=== PATIENT | male | born 1970 | race Hispanic/Latino ===

== ENCOUNTER 2024-04-16 13:16 | Emergency (ER) | payer BC, OTHER ==
--- NOTE | 2024-04-16 14:01 | RAD REPORT ---
EXAM DESCRIPTION: CT - Head Brain Wo Cont - 04/16/2024 1:53 pm CLINICAL HISTORY: DIZZINESS Headache, drowsiness, dizziness COMPARISON: <Comparisons> TECHNIQUE: All CT scans are performed using dose optimization technique as appropriate and may inclu de automated exposure control or mA/KV adjustment according to patient size. FINDINGS: No intracranial hemorrhage, hydrocephalus or extra-axial fluid collection.No areas of brai n edema or evidence of midline shift. Mild vertebral atherosclerosis. The paranasal sinuses and mastoids are clear. The calvarium is intact. IMPRESSION: No acute intracranial abnormality.
--- NOTE | 2024-04-16 14:07 | RAD REPORT ---
EXAM DESCRIPTION: RAD - Chest Single View - 04/16/2024 2:02 pm CLINICAL HISTORY: dizziness Chest pain. COMPARISON: Chest Pa And Lat (2 Views) dated 11/11/2016; CHEST PA AND LAT 2 VIEW dated 08/06/2009; Ab domen Exam Limited dated 12/12/2017; Chest For Pe Angio dated 11/11/2016 FINDINGS: Portable technique limits examination quality. The lungs are grossly clear. The heart is normal in size. No displaced fractures. IMPRESSION: No acute intrathoracic process suspected.
[2024-04-16 15:14] LABS: Absolute Eosinophils 0.2 K/uL (0-0.5); Absolute Lymphocytes (CBC) 1.4 K/uL (0.7-4.9); Absolute Monocytes 0.5 K/uL (0.1-1.3); Absolute Neutrophil 5.6 K/uL (1.8-8.0); Basophils % 0.6 % (0-1.3); Eosinophils % 2.7 % (0-4.4); Hematocrit 44.9 % (39.6-49.0); Hemoglobin 15.1 g/dL (13.6-17.9); Lymphocytes % 17.9 % (15.3-44.8); MCH 30.4 pg (27.0-35.0); MCHC 33.7 g/dL (32.0-36.0); MCV 90.3 fL (80-100); Monocytes % 6.8 % (3.3-12.3); Platelets 270 thou/uL (152-406); RBC Red Blood Cell Count 4.98 M/uL (4.33-5.43); Red Cell Distribution Width 14.3 % (12.1-15.2)
[2024-04-16 15:16] LABS: Specific Gravity > 1.030 (1.005-1.030); Sqamous Epithelial None Seen /HPF (None Seen); Urine Bacteria None Seen /HPF (<20); Urine Bilirubin NEGATIVE (Negative); Urine Blood Negative (Negative); Urine Clarity Clear (Clear); Urine Color Light-Yellow (Yellow); Urine Culture Reflex Order NOT NEEDED; Urine Glucose 4+ (Over) (Negative); Urine Ketones NEGATIVE (Negative); Urine Micro Reflex YN NO BILL MICROSCOPIC; Urine Mucus Slight /HPF (None Seen); Urine Nitrite NEGATIVE (Negative); Urine Protein NEGATIVE (Negative); Urine RBC <5 /HPF (None Seen); Urine Urobilinogen Normal (Normal); Urine WBC <5 /HPF (<5)
[2024-04-16 15:33] LABS: Albumin 3.8 g/dL (3.4-5.0); Albumin/Globulin Ratio 1.2 (1.1-1.8); Anion Gap 9.1 mEq/L (5.0-15.0); Bilirubin Direct 0.2 mg/dL (0-0.2); Bilirubin Indirect, Calculated 0.2 mg/dL (0.2-0.8); Bilirubin Total 0.4 mg/dL (0.2-1.0); Globulin 3.1 g/dL (2.3-3.5); Magnesium 2.3 mg/dL (1.6-2.4); Potassium 4.1 mEq/L (3.5-5.1); Protein, Total 6.9 g/dL (6.4-8.2); Troponin High Sensitivity 3.3 pg/mL (<58.9)
[2024-04-16] MEDS ORDERED: NA CHLORIDE 0.9% 1,000 ML ONE (15:43)
[2024-04-16] MEDS ORDERED: MECLIZINE HCL 12.5 MG TAB ONE (16:17)
--- NOTE | 2024-04-16 17:25 | ER ---
Nurse's Notes [facility] Name: Jean Carlos Guidry Jr Age: 53 yrs Sex: Male : 1970 Arrival Date: 04/16/2024 Time: 13:16 Bed 23 Private MD: Diagnosis: Dizziness and giddiness;Volume depletion, unspecified;Diabetes mellitus due to underlying condition with hyperglycemia Presentation: 04/16 13:35 Chief complaint: Patient states: TODAY FELT DIZZY AND LIGHTHEADED. FELT LIKE WAS GOING db TO PASS OUT. TOOK BP IT WAS 72/40. GLUCOSE WAS IN 300S AT HOME AND TOOK MEDICATION. Coronavirus screen: Client denies travel out of the [place] in the last 14 days. At this time, the client does not indicate any symptoms associated with coronavirus-19. Ebola Screen: Patient negative for fever greater than or equal to 101.5 degrees Fahrenheit, and additional compatible Ebola Virus Disease symptoms Patient denies exposure to infectious person. Patient denies travel to an Ebola-affected area in the 21 days before illness onset. No symptoms or risks identified at this time. Initial Sepsis Screen: Does the patient meet any 2 criteria? No. Patient's initial sepsis screen is negative. Does the patient have a suspected source of infection? No. Patient's initial sepsis screen is negative. Risk Assessment: Do you want to hurt yourself or someone else? Patient reports no desire to harm self or others. Onset of symptoms was April 16, 2024 at 11:30. 13:35 Method Of Arrival: Ambulatory db 13:35 Acuity: HAROLDO 2 db Triage Assessment: 13:37 General: Appears in no apparent distress. comfortable, Behavior is calm, cooperative. db Pain: Denies pain. Neuro: Level of Consciousness is awake, alert, obeys commands, Oriented to person, place, time, situation, Reports dizziness. Respiratory: Airway is patent Respiratory effort is even, unlabored, Respiratory pattern is regular, symmetrical. Historical: - Allergies: 13:37 No Known Allergies; db - PMHx: 13:37 Diabetes - IDDM; Hyperlipidemia; Hypertension; db - Immunization history:: Adult Immunizations unknown. - Infectious Disease History:: Denies. - Social history:: Smoking status: Patient denies any tobacco usage or history of. Screenin:18 [facility] ED Fall Risk Assessment (Adult) History of falling in the last 3 months, iw including since admission No falls in past 3 months (0 pts) Confusion or Disorientation No (0 pts) Intoxicated or Sedated No (0 pts) Impaired Gait No (0 pts) Mobility Assist Device Used No (0 pt) Altered Elimination No (0 pt) Score/Fall Risk Level 0 - 2 = Low Risk Oriented to surroundings. Abuse screen: Denies threats or abuse. Denies injuries from another. Nutritional screening: No deficits noted. Tuberculosis screening: No symptoms or risk factors identified. Assessment: 17:18 Reassessment: Patient appears in no apparent distress at this time. Patient and/or iw family updated on plan of care and expected duration. Pain level reassessed. Patient is alert, oriented x 3, equal unlabored respirations, skin warm/dry/pink. Patient states feeling better. Patient states symptoms have improved. Vital Signs: 13:35 BP 108 / 75; Pulse 80; Resp 18; Temp 97.4; Pulse Ox 98% on R/A; Weight 92.99 kg; Height db 5 ft. 7 in. ; 17:26 BP 121 / 70; Pulse 72; Resp 16; Pulse Ox 99% on R/A; zm 13:35 Body Mass Index 32.11 (92.99 kg, 170.18 cm) db ED Course: 13:19 Patient arrived in ED. im 13:32 Estuardo Lopez PA is PHCP. cp 13:32 Estuardo Florez MD is Attending Physician. cp 13:37 Triage completed. db 13:37 Arm band placed on right wrist. db 13:54 CT Head Brain wo Cont In Process Unspecified. EDMS 14:02 X-ray completed. Patient tolerated procedure well. mh1 14:03 XRAY Chest (1 view) In Process Unspecified. EDMS 14:56 Amy England, RN is Primary Nurse. iw 15:07 Initial lab(s) drawn, by me, sent to lab. Inserted saline lock: 20 gauge in left iw antecubital area, using aseptic technique. Blood collected. 17:18 Patient has correct armband on for positive identification. Provided Education on: . iw 17:40 No provider procedures requiring assistance completed. IV discontinued, intact, iw bleeding controlled, No redness/swelling at site. Pressure dressing applied. Administered Medications: 15:49 Drug: NS 0.9% IV 1000 ml IV at 999 ml/hr Per protocol; 1000 mL bolus Route: IV; Rate: iw 999 ml/hr; Site: left antecubital; 17:00 Follow up: IV Status: Completed infusion iw 17:07 Drug: Meclizine PO 25 mg PO once Route: PO; iw 17:15 Follow up: Response: No adverse reaction iw Medication: 17:18 VIS not applicable for this client. iw Outcome: 17:24 Discharge ordered by MD. cp 17:40 Discharged to home ambulatory, with family, iw 17:40 Condition: good 17:40 Discharge instructions given to patient, Instructed on discharge instructions, follow up and referral plans. medication usage, Demonstrated understanding of instructions, follow-up care, medications, Prescriptions given X 1, 17:40 Patient left the ED. iw Signatures: Dispatcher [employer] EDMS Maeve Koch [facility] Amy England, RN RN iw Estuardo Lopez PA PA cp Martinez, Zaina zm Benton, Danielle RN RN db Court Navarro Corrections: (The following items were deleted from the chart) 13:41 13:35 BP 108 / 75; Pulse 80bpm; Resp 18bpm; Pulse Ox 98% RA; db db
--- NOTE | 2024-04-16 17:25 | EDPHYS ---
Physician Documentation [facility] Name: Jean Carlos Guidry Jr Age: 53 yrs Sex: Male : 1970 Arrival Date: 04/16/2024 Time: 13:16 Bed 23 Private MD: ED Physician Estuardo Florez HPI: 04/16 13:50 This 53 yrs old Male presents to ER via Ambulatory with complaints of Low cp blood pressure, Dizziness. 13:50 The patient presents with dizziness, lightheadedness. cp 13:50 Onset: The symptoms/episode began/occurred today, 2 hour(s) ago. Context: just prior to cp the episode the patient experienced no apparent symptoms, was sitting in chair at home. Associated signs and symptoms: Pertinent positives: dizziness and low blood pressure, Pertinent negatives: abdominal pain, chest pain, confusion, focal weakness, headache, near-syncope, syncope. Severity of symptoms: in the emergency department the symptoms have improved. Patient's baseline: Neuro: alert and fully oriented, Motor: no deficits, Ambulation: walks without assistance, Speech: normal. Historical: - Allergies: 13:37 No Known Allergies; db - PMHx: 13:37 Diabetes - IDDM; Hyperlipidemia; Hypertension; db - Immunization history:: Adult Immunizations unknown. - Infectious Disease History:: Denies. - Social history:: Smoking status: Patient denies any tobacco usage or history of. ROS: 13:55 Constitutional: Negative for body aches, chills, fever, poor PO intake, cp 13:55 Eyes: Negative for injury, pain, redness, and discharge, cp 13:55 Cardiovascular: Negative for chest pain, edema, palpitations, 13:55 Respiratory: Negative for cough, shortness of breath, wheezing, 13:55 Abdomen/GI: Negative for abdominal pain, vomiting, diarrhea, constipation, 13:55 : Negative for urinary symptoms, 13:55 Neuro: Positive for dizziness, weakness, Negative for altered mental status, numbness, syncope, near syncope, Exam: 14:00 Constitutional: The patient appears in no acute distress, alert, awake, cp non-diaphoretic, non-toxic, well developed, well nourished, 14:00 Head/Face: Normocephalic, atraumatic. cp 14:00 Eyes: Periorbital structures: appear normal, Conjunctiva: normal, no exudate, no injection, Sclera: no appreciated abnormality, Lids and lashes: appear normal, bilaterally, 14:00 ENT: External ear(s): are unremarkable, Nose: is normal, Mouth: Lips: moist, Oral mucosa: pink and intact, moist, Posterior pharynx: Airway: no evidence of obstruction, patent, 14:00 Neck: ROM/movement: is normal, is supple, without pain, no range of motions limitations, no meningismus, no nuchal rigidity, 14:00 Chest/axilla: Inspection: normal, 14:00 Cardiovascular: Rate: normal, Rhythm: regular, Edema: is not appreciated, JVD: is not appreciated, 14:00 Respiratory: the patient does not display signs of respiratory distress, Respirations: normal, no use of accessory muscles, no retractions, labored breathing, is not present, Breath sounds: are clear throughout, no decreased breath sounds, no stridor, no wheezing, 14:00 Abdomen/GI: Inspection: abdomen appears normal, Palpation: abdomen is soft and non-tender, in all quadrants, 14:00 Back: pain, is absent, ROM is normal, 14:00 Neuro: Orientation: to person, place \T\ time. Mentation: is normal, Cerebellar function: is grossly normal, Motor: moves all fours, strength is normal, Sensation: is normal, 17:22 ECG was reviewed by the Attending Physician. Vital Signs: 13:35 BP 108 / 75; Pulse 80; Resp 18; Temp 97.4; Pulse Ox 98% on R/A; Weight 92.99 kg; Height db 5 ft. 7 in. ; 17:26 BP 121 / 70; Pulse 72; Resp 16; Pulse Ox 99% on R/A; zm 13:35 Body Mass Index 32.11 (92.99 kg, 170.18 cm) db MDM: 13:35 Patient medically screened. 14:00 Differential diagnosis: cardiac arrhythmia, generalized weakness, GI bleed, cp hypovolemia, idiopathic dizziness, sepsis. 17:23 Data reviewed: vital signs, nurses notes, lab test result(s), EKG, radiologic studies, cp CT scan, plain films, and as a result, I will discharge patient. 17:23 I considered the following discharge prescriptions or medication management in the emergency department Medications were administered in the Emergency Department. See MAR. Independent interpretation of the following test(s) in the Emergency Department EKG: See my EKG interpretation above. Counseling: I had a detailed discussion with the patient and/or guardian regarding the historical points, exam findings, and any diagnostic results supporting the discharge/admit diagnosis, lab results, radiology results, to return to the emergency department if symptoms worsen or persist or if there are any questions or concerns that arise at home. Response to treatment: the patient's symptoms have markedly improved after treatment, and as a result, I will discharge patient. 04/16 13:41 Order name: Basic Metabolic Panel; Complete Time: 15:39 cp 04/16 15:39 Interpretation: Normal except: GLUC 181; BUN 25; GFR 87. cp 04/16 13:41 Order name: CBC with Diff; Complete Time: 15:20 cp 04/16 13:41 Order name: LFT's; Complete Time: 15:39 cp 04/16 13:41 Order name: Magnesium; Complete Time: 15:39 cp 04/16 13:41 Order name: Troponin HS; Complete Time: 15:39 cp 04/16 13:41 Order name: Urinalysis W/Microscopic; Complete Time: 15:20 cp 04/16 13:41 Order name: XRAY Chest (1 view); Complete Time: 15:20 cp 04/16 13:41 Order name: CT Head Brain wo Cont; Complete Time: 15:20 cp 04/16 13:41 Order name: EKG; Complete Time: 13:42 cp 04/16 13:41 Order name: Cardiac monitoring; Complete Time: 15:50 cp 04/16 13:41 Order name: EKG - Nurse/Tech; Complete Time: 17:17 cp 04/16 13:41 Order name: IV Saline Lock; Complete Time: 15:49 cp 04/16 13:41 Order name: Labs collected and sent; Complete Time: 15:50 cp 04/16 13:41 Order name: O2 Per Protocol; Complete Time: 15:50 cp 04/16 13:41 Order name: O2 Sat Monitoring; Complete Time: 15:50 cp 04/16 16:40 Order name: Vital Signs; Complete Time: 17:27 cp EC:22 Rate is 68 beats/min. Rhythm is regular. [place] interval is normal. QRS interval is normal. cp QT interval is normal. T waves are Inverted in lead aVR. Interpreted by me. Reviewed by me. Administered Medications: 15:49 Drug: NS 0.9% IV 1000 ml IV at 999 ml/hr Per protocol; 1000 mL bolus Route: IV; Rate: iw 999 ml/hr; Site: left antecubital; 17:00 Follow up: IV Status: Completed infusion iw 17:07 Drug: Meclizine PO 25 mg PO once Route: PO; iw 17:15 Follow up: Response: No adverse reaction iw Disposition Summary: 04/16/24 17:24 Discharge Ordered Notes: Location: Home cp Problem: new cp Symptoms: have improved cp Condition: Stable cp Diagnosis - Dizziness and giddiness cp - Volume depletion, unspecified cp - Diabetes mellitus due to underlying condition with hyperglycemia cp Followup: cp - With: Private Physician - When: 2 - 3 days - Reason: Recheck today's complaints Discharge Instructions: - Discharge Summary Sheet cp - Dizziness cp - Hyperglycemia cp - Blood Glucose Monitoring, Adult cp - Diabetes Mellitus and Nutrition, Adult cp - Aspirin and Your Heart cp Forms: - Medication Reconciliation Form cp - Antibiotic Education cp - Prescription Opioid Use cp - Patient Portal Instructions cp - Leadership Thank You Letter cp Prescriptions: - Meclizine 25 mg Oral Tablet - take 1 tablet ORAL route every 8 hours As needed; 30 tablet; Refills: 0, cp Product Selection Permitted Addendum: 04/19/2024 07:40 Co-signature as Attending Physician, Estuardo Florez MD I agree with the assessment and c [place] plan of care. Signatures: Dispatcher [employer] Estuardo Gómez MD MD cha Williams, Irene, RN RN Estuardo Bradley PA PA cp Radha Lafleur, RN RN db
[2024-04-16 18:58] VITALS: BP 121/70; TEMP 97.4; O2SAT 99
--- NOTE | 2024-04-20 10:35 | EKG ---
Test Date: 2024-04-16 Test Time: 17:15:14 Adhesion Tester: YAMEL MEASUREMENT RESULTS: Intervals: Rate: 68 IA: 192 QRSD: 94 QT: 394 QTc: 418 [place]: P: 42 IA: 192 QRS: 4 T: 20 INTERPRETIVE STATEMENTS: Normal sinus rhythm Normal ECG Compared to ECG 11/12/2016 05:50:33 No significant changes Electronically Signed On 04-20-24 10:32:35 CDT by Mickey Montgomery
== END 2024-04-16 17:40 | disposition home or self-care (01) ==
LOC: ER 13:16
DX: E86.9 Volume depletion, unspecified (principal); E08.65 Diabetes mellitus due to underlying condition with hyperglycemia; I10 Essential (primary) hypertension
CPT/HCPCS: 93005; 85025; 81001; 80048; 36415; 83735; 80076; 84484; 70450; 71045; 96360; 99284; J8597; J7030

== ENCOUNTER 2024-11-07 08:58 | Emergency (ER) | payer OTHER ==
[2024-11-07 11:00] LABS: SARS-CoV-2 Antigen CONTROL BLUE LINE VIS/BG OK; SARS-CoV-2 Antigen Rapid Res Negative (Negative)
--- NOTE | 2024-11-07 11:26 | EDPHYS ---
Physician Documentation [facility] Name: Jean Carlos Guidry Jr Age: 54 yrs Sex: Male : 1970 Arrival Date: 11/07/2024 Time: 08:58 Bed 10 Private MD: ED Physician Mynor Arreola HPI: 11/07 11:10 This 54 yrs old Male presents to ER via Ambulatory with complaints of Flu bo1 Symptoms. 11:10 Pt had engaged in a virtual tele visit and pt had "flu-like" symptoms on Sunday. Most bo1 likely started on Tamiflu and Phenegan. Pt reports he's not any better. Today is the last day for the Tamiflu. Sxs still include a cough and now "green" productive sputum. . Onset: The symptoms/episode began/occurred gradually, 4 day(s) ago. Pt had a stress test scheduled but now postponed. He has HTN, DM and hyperlipidemia. Spouse is with the pt in triage.. Historical: - Allergies: 09:36 No Known Allergies; ap3 - PMHx: 09:36 Diabetes - IDDM; Diabetes - NIDDM; Hyperlipidemia; Hypertension; ap3 - Immunization history:: Client reports receiving the 2nd dose of the Covid vaccine, Flu vaccine is not up to date. - Infectious Disease History:: Denies. - Social history:: Smoking status: Patient denies any tobacco usage or history of. ROS: 11:13 Constitutional: Negative for weight loss bo1 11:13 Constitutional: Positive for body aches, chills, fever, 11:13 Neck: Negative for pain with movement, pain at rest, 11:13 Cardiovascular: Negative for chest pain, palpitations, 11:13 Respiratory: Positive for cough, Sputum that is now "green.", 11:13 Abdomen/GI: Negative for abdominal pain, 11:13 Skin: Negative for rash, 11:13 All other systems are negative, Exam: 10:41 ECG was reviewed by the Attending Physician. bo1 11:14 Constitutional: This is a well developed, well nourished patient who is awake, alert, bo1 and in no acute distress. 11:14 Constitutional: The patient appears in no acute distress, alert, awake, comfortable, non-toxic, 11:14 ENT: Exam is negative for acute changes, TM's: are normal, Nose: is normal, Posterior pharynx: is normal, 11:14 Neck: External neck: is normal, no acute changes, Lymph nodes: no acute changes, 11:14 Cardiovascular: Rate: normal, Rhythm: regular, Pulses: no pulse deficits are appreciated, 11:14 Respiratory: the patient does not display signs of respiratory distress, Respirations: normal, no acute changes, Breath sounds: are clear throughout, 11:14 Skin: no rash present. Warm and dry, Vital Signs: 09:34 BP 126 / 72; Pulse 87; Resp 18; Temp 98.9(O); Pulse Ox 98% on R/A; Weight 95.25 kg; ap3 Height 5 ft. 6 in. ; Pain 8/10; 11:45 Pulse 77; Resp 18; Temp 98.6(TE); Pulse Ox 97% on R/A; ap3 09:34 Body Mass Index 33.89 (95.25 kg, 167.64 cm) ap3 09:34 Pain Scale: Adult ap3 MDM: 09:49 Medical Screening Exam initiated bo1 11:15 Differential Diagnosis flu, Other viral illness and acute bronchitis. Data reviewed: bo1 vital signs, lab test result(s), EKG. ED course: Viral screens are negative. Pt is most likely to have an acute bronchitis with cough. 11/07 09:49 Order name: Flu; Complete Time: 11:18 bo1 11/07 09:49 Order name: RSV; Complete Time: 11:18 bo1 11/07 09:49 Order name: SARS-COV-2 Antigen Rapid; Complete Time: 11:18 bo1 11/07 10:07 Order name: EKG - Nurse/Tech; Complete Time: 10:35 bo1 EC:41 Rate is 77 beats/min. Rhythm is regular. QRS [place] is Normal. [place] interval is normal. QRS bo1 interval is normal. QT interval is normal. No Q waves. T waves are Normal. No ST changes noted. Clinical impression: Normal ECG. Interpreted by me. Reviewed by me. Administered Medications: No medications were administered Disposition Summary: 11/07/24 11:26 Discharge Ordered Notes: Location: Home bo1 Problem: new bo1 Symptoms: are unchanged bo1 Condition: Stable bo1 Diagnosis - Acute bronchitis due to other specified organism bo1 - Cough bo1 - Other specified viral diseases bo1 Followup: bo1 - With: Private Physician - When: Upon discharge from the Emergency Department - Reason: Recheck today's complaints, Continuance of care Discharge Instructions: - Discharge Summary Sheet bo1 - Acute Bronchitis, Adult bo1 - Cough, Adult bo1 Forms: - Work release form bo1 - Medication Reconciliation Form bo1 - Antibiotic Education bo1 - Prescription Opioid Use bo1 - Patient Portal Instructions bo1 - Leadership Thank You Letter bo1 Prescriptions: - azithromycin 500 mg Oral tablet - take 1 tablet ORAL route daily for 7 days; 7 tablet; Refills: 0, Product bo1 Selection Permitted - Tessalon Perles 100 mg Oral capsule - take 1 capsule ORAL route every 8 hours As needed 200 mg PERLES instead of the bo1 100 mg; 30 capsule; Refills: 0, Product Selection Permitted Signatures: Dispatcher [employer] Rachel Amor RN RN ap3 OeiMynor MD MD bo1
--- NOTE | 2024-11-07 11:26 | ER ---
Nurse's Notes [facility] Name: Jean Carlos Guidry Jr Age: 54 yrs Sex: Male : 1970 Arrival Date: 11/07/2024 Time: 08:58 Bed 10 Private MD: Diagnosis: Acute bronchitis due to other specified organism;Cough;Other specified viral diseases Presentation: 11/07 09:34 Chief complaint: Patient states: he did a virtual appointment Sunday, and was ap3 prescribed "a pack of 5 pills" and is not feeling any better. patient complains of cough and body aches. Coronavirus screen: Client presents with at least one sign or symptom that may indicate coronavirus-19. Ebola Screen: No symptoms or risks identified at this time. Initial Sepsis Screen: Does the patient meet any 2 criteria? No. Patient's initial sepsis screen is negative. Does the patient have a suspected source of infection? No. Patient's initial sepsis screen is negative. Risk Assessment: Do you want to hurt yourself or someone else? Patient reports no desire to harm self or others. Onset of symptoms was November 03, 2024. 09:34 Method Of Arrival: Ambulatory ap3 09:34 Acuity: HAROLDO 3 ap3 Triage Assessment: 09:36 General: Appears in no apparent distress. Behavior is calm, cooperative, appropriate ap3 for age, Reports feeling ill for. Pain: Complains of pain in generalized body aches Pain currently is 9 out of 10 on a pain scale. Pain began gradually. Neuro: Level of Consciousness is awake, alert, obeys commands, Oriented to person, place, time, situation, Appropriate for age Speech is normal. Cardiovascular: Patient's skin is warm and dry. Respiratory: Reports cough that is Airway is patent Respiratory effort is even, unlabored, Respiratory pattern is regular, symmetrical. Historical: - Allergies: 09:36 No Known Allergies; ap3 - PMHx: 09:36 Diabetes - IDDM; Diabetes - NIDDM; Hyperlipidemia; Hypertension; ap3 - Immunization history:: Client reports receiving the 2nd dose of the Covid vaccine, Flu vaccine is not up to date. - Infectious Disease History:: Denies. - Social history:: Smoking status: Patient denies any tobacco usage or history of. Screenin:37 [facility] ED Fall Risk Assessment (Adult) History of falling in the last 3 months, ap3 including since admission No falls in past 3 months (0 pts) Confusion or Disorientation No (0 pts) Intoxicated or Sedated No (0 pts) Impaired Gait No (0 pts) Mobility Assist Device Used No (0 pt) Altered Elimination No (0 pt) Score/Fall Risk Level 0 - 2 = Low Risk Oriented to surroundings, Maintained a safe environment, Educated pt \\T\\ family on fall prevention, incl call for assistance when getting out of bed, Assessed \\T\\ reinforced patient's understanding of fall precautions, Hourly rounding (assess needs \\T\\ fall precautionary measures) done, Used ambulatory aids as needed (educated on \\T\\ assisted with), Used gait belt as appropriate. Abuse screen: Denies threats or abuse. Nutritional screening: No deficits noted. Tuberculosis screening: No symptoms or risk factors identified. Vital Signs: 09:34 BP 126 / 72; Pulse 87; Resp 18; Temp 98.9(O); Pulse Ox 98% on R/A; Weight 95.25 kg; ap3 Height 5 ft. 6 in. ; Pain 8/10; 11:45 Pulse 77; Resp 18; Temp 98.6(TE); Pulse Ox 97% on R/A; ap3 09:34 Body Mass Index 33.89 (95.25 kg, 167.64 cm) ap3 09:34 Pain Scale: Adult ap3 ED Course: 09:04 Patient arrived in ED. im 09:35 Triage completed. ap3 09:37 Arm band placed on left wrist. ap3 09:49 Mynor Arreola MD is Attending Physician. bo1 09:57 COVID swab sent to lab. Flu and/or RSV swab sent to lab. ap3 09:57 SARS-COV-2 Antigen Rapid Sent. ap3 09:57 RSV Sent. ap3 09:57 Flu Sent. ap3 10:34 EKG done, by ED staff, reviewed by Mynor Arreola MD. ty 11:45 Patient has correct armband on for positive identification. Bed in low position. Call ap3 light in reach. Adult w/ patient. Provided Education on: discharge instructions . 11:45 No provider procedures requiring assistance completed. Patient did not have IV access ap3 during this emergency room visit. Administered Medications: No medications were administered Medication: 11:45 VIS not applicable for this client. ap3 Outcome: 11:26 Discharge ordered by . bo1 11:45 Discharged to home ambulatory, with family, ap3 11:45 Condition: good 11:45 Discharge instructions given to patient, family, Instructed on discharge instructions, follow up and referral plans. medication usage, Demonstrated understanding of instructions, follow-up care, medications, Prescriptions given X 2, 11:46 Patient left the ED. ap3 Signatures: Rachel Hooker RN RN ap3 Court Navarro Tylor ty Oei, Benjamin, MD MD bo1
[2024-11-07 13:08] VITALS: BP 126/72
[2024-11-07 13:09] VITALS: TEMP 98.6; O2SAT 97
== END 2024-11-07 11:46 | disposition home or self-care (01) ==
LOC: ER 08:58
DX: J20.8 Acute bronchitis due to other specified organisms (principal); Z11.52 Encounter for screening for COVID-19
CPT/HCPCS: 36415; 87804; 87807; 87811; 99283

== ENCOUNTER 2024-12-11 07:05 | Day surgery (SDC) | payer OTHER ==
[2024-12-09 10:43] LABS: Absolute Eosinophils 0.2 K/uL (0-0.5); Absolute Lymphocytes (CBC) 1.4 K/uL (0.7-4.9); Absolute Monocytes 0.4 K/uL (0.1-1.3); Basophils % 0.7 % (0-1.3); Eosinophils % 2.9 % (0-4.4); Hematocrit 45.3 % (39.6-49.0); Hemoglobin 15.4 g/dL (13.6-17.9); Lymphocytes % 23.6 % (15.3-44.8); MCHC 33.9 g/dL (32.0-36.0); MCV 91.5 fL (80-100); MPV 8.6 fL (7.6-11.3); Monocytes % 6.9 % (3.3-12.3); Neutrophils % 65.9 % (41.7-73.7); Platelets 213 thou/uL (152-406); RBC Red Blood Cell Count 4.95 M/uL (4.33-5.43); Red Cell Distribution Width 14.3 % (12.1-15.2)
[2024-12-09 10:50] LABS: PT Prothrombin Time 10.4 SECONDS (10.0-13.0); PTT, Activated Partial Thromb 33.6 SECONDS (24.3-36.9); Protime INR 0.91
[2024-12-09 10:52] LABS: Anion Gap 10.7 mEq/L (5.0-15.0); Potassium 3.7 mEq/L (3.5-5.1)
--- NOTE | 2024-12-09 11:32 | RAD REPORT ---
EXAM: Chest Pa And Lat (2 Views) HISTORY: 54 years Male Pre-op pending heart cath COMPARISON: 04/16/2024 FINDINGS: LUNGS/PLEURA: Linear scarring at the left lung base. Lungs are otherwise clear. CARDIAC/MEDIASTINUM: The cardiac silhouette is within normal limits. UPPER ABDOMEN: No significant abnormality. BONES: No acute abnormality. LINES/TUBES/OTHER: N/A IMPRESSION: No evidence of acute cardiopulmonary disease.
[2024-12-11] MEDS ORDERED: NA CHLORIDE 0.9% 500 ML ONE (07:12)
[2024-12-11] MEDS ORDERED: NITROGLYCERIN/D5W 0 MG/0 ML BTL IV ONE (07:19)
[2024-12-11] MEDS ORDERED: LIDOCAINE 1% 20 ML MDV ONE (07:19)
[2024-12-11] MEDS ORDERED: HEPARIN 10,000 UNIT/10 ML VIAL IV ONE (07:19)
[2024-12-11] MEDS ORDERED: MIDAZOLAM HCL 2 MG/2 ML INJ ONE (07:20)
[2024-12-11] MEDS ORDERED: ATROPINE SULF 1 MG/10 ML SYR IV ONE (07:20)
[2024-12-11] MEDS ORDERED: HEPARIN 5000 UNIT/ML 1 ML VIAL ONE (07:20)
[2024-12-11] MEDS ORDERED: TICAGRELOR 90 MG TABLET PO ONE (07:21)
[2024-12-11] MEDS ORDERED: FENTANYL CITR 100 MCG/2 ML ONE (07:21)
[2024-12-11] MEDS ORDERED: CLOPIDOGREL 75 MG TABLET ONE (07:21)
[2024-12-11] MEDS ORDERED: ASPIRIN 325 MG TAB ONE (07:22)
[2024-12-11 11:24] VITALS: BP 131/82; O2SAT 98
--- NOTE | 2024-12-11 16:54 | EKG ---
Test Date: 2024-12-09 Test Time: 11:21:16 Business Banking Sales Assistant: PHANI MEASUREMENT RESULTS: Intervals: Rate: 79 [place]: 174 QRSD: 86 QT: 374 QTc: 428 Shannon: P: 36 [place]: 174 QRS: 49 T: 30 INTERPRETIVE STATEMENTS: Normal sinus rhythm Normal ECG Compared to ECG 11/07/2024 10:31:56 No significant changes Electronically Signed On 12-11-24 16:46:46 GIN CLERK by Mickey Montgomery
--- NOTE | 2024-12-11 23:32 | OP ---
Date of Procedure: 12/11/2024 Surgeon: Mickey Montgomery Procedures Performed: 1. Left heart catheterization. 2. Selective coronary angiogram. 3. Nonselective angiogram of the left subclavian and the left internal mammary artery. Indication For Procedure: Chest pain, abnormal stress test. Complications: None. Estimated Blood Loss: Less than 50 cc. Access: Right radial and right common femoral arteries. Sedation Time: 30 minutes with 1 of Versed and 50 of fentanyl. Description Of Procedure: After risks, benefits, and alternatives were explained to the patient, the patient agreed to proceed with procedure and signed informed consent. The patient was brought back to the recyclable products sorter, prepped and draped in sterile fashion. Time-out was performed. Sedation was admini stered. Next, right radial access was obtained using ultrasound-guided micropuncture technique. Tig er 4 catheter was advanced, but it will not advanced across the arm due to tortuosity or spasm, so we obtained right common femoral artery access using ultrasound-guided micropuncture technique. 6-Fren ch sheath was introduced. Next, JL4 catheter was used for selective angiogram of the left coronary s ystems, that was exchanged for a JR4 catheter to the LV cavity for LVEDP. Pullback did not show any gradient and same catheter was used for selective angiogram of the right coronary system, and then pu lled back to the left subclavian artery for nonselective angiogram of the TEIXEIRA. At the end of proced ure, catheter was removed. Sheath was removed. Manual compression was applied. Hemostasis was achi eved. The patient was moved back to recovery in stable condition. Findings: 1. Left main: Normal. 2. LAD: Proximal 60% disease, followed by mid 80% disease, then distal mild luminal irregularities. 3. Diagonal 1: Large with a proximal diffuse 80% disease, then mild luminal irregularities. 4. Left circumflex: Mid 100% occluded. 5. OM1: Large, gets [id number]-eosn collaterals. 6. RCA: Mid 90% occluded, then mid to distal 100% occluded with [id number] collaterals into the R PDA. 7. Left subclavian artery/TEIXEIRA: Patent. 8. LVEDP: 8 mmHg. Assessment And Plan: Significant left anterior descending, diagonal 1, obtuse marginal 1, right post erior descending artery disease. Plan is to continue medical management and outpatient evaluation for coronary artery bypass grafting. CADEN/JOSE RAUL Voice ID: [id number] Report ID: [id number]
== END 2024-12-11 11:15 | disposition home or self-care (01) ==
LOC: CCL 07:05
PROVIDERS: ATTEND Internal Medicine Interventional Cardiology
DX: I25.10 Atherosclerotic heart disease of native coronary artery without angina pectoris (principal); I25.82 Chronic total occlusion of coronary artery; I10 Essential (primary) hypertension; E78.2 Mixed hyperlipidemia; E11.9 Type 2 diabetes mellitus without complications; Z79.82 Long term (current) use of aspirin; Z79.899 Other long term (current) drug therapy
CPT/HCPCS: 93005; 85025; 80048; 36415; 85610; 82947; 85730; 71046; 93458; 76937; C1893; Q9966; J1644; J2003; J2250; J3010; J7040; 99152; 99153; J0461